=== PATIENT | male | born 1975 | race Caucasian/White ===

== ENCOUNTER 2017-11-12 11:04 | Emergency (ER) | payer OTHER ==
[2017-11-12 11:29] VITALS: BMI 30.6
[2017-11-12 11:32] VITALS: TEMP 98.2
[2017-11-12] MEDS ORDERED: Sodium Chloride 0.9% 1,000 ML IV STA (12:10)
[2017-11-12 12:35] LABS: BASO % 0.1 % (0.0-2.0); EOS % 0.5 % (0.0-4.0); HEMOGLOBIN 14.3 g/dL (12.0-18.0); LYMPH # 1.6 K/uL (1.0-4.3); LYMPH % 15.1 % (20.0-40.0); MEAN CELL VOLUME 80.8 fl (80.0-94.0); MEAN CORPUSCULAR HEMOGLOBIN 26.6 pg (27.0-31.0); MEAN CORPUSCULAR HGB CONC 32.9 g/dL (33.0-37.0); MEAN PLATELET VOLUME 8.8 fl (7.2-11.7); MONO % 9.1 % (0.0-10.0); NEUT % 75.2 % (50.0-75.0); NRBC % 0.1 % (0.0-0.0); RBC 5.37 Mil/uL (4.40-5.90); RED CELL DISTRIBUTION WIDTH 13.9 % (11.5-14.5); WHITE BLOOD COUNT 10.7 K/uL (4.8-10.8)
[2017-11-12 12:44] LABS: ALB/GLOB RATIO 1.1 (1.0-2.1); ALBUMIN 4.5 g/dL (3.5-5.0); ALT/SGPT 45 U/L (21-72); AST/SGOT 45 U/L (17-59); BLOOD UREA NITROGEN 11 mg/dl (9-20); CALCIUM 9.3 mg/dL (8.4-10.2); GFR AFRICAN-AMERICAN > 60; GFR NON-AFRICAN AMERICAN > 60; URIC ACID 7.5 mg/Dl (3.5-8.5)
--- NOTE | 2017-11-12 14:09 | ED PDOC ---
Upper Extremity Pain/Injury Time Seen by Provider: 11/12/17 11:44 Chief Complaint (Nursing): Upper Extremity Problem/Injury Chief Complaint (Provider): LEft wrist pain x 2 days History Per: Patient History/Exam Limitations: no limitations Onset/Duration Of Symptoms: Days Current Symptoms Are (Timing): Still Present Quality: Dull, Burning Severity: Severe Pain Scale Rating Of: 10 Additional Complaint(s): 42 yo male with history of gout in the left wrist presents with redness, swelling and pain to the left wrist for 2 days. PT denies trauma. PT states it feels similar to previous episodes of gout. Past Medical History Reviewed: Historical Data, Nursing Documentation, Vital Signs Vital Signs: Last Vital Signs Temp 98.2 F 11/12/17 11:30 Pulse 93 H 11/12/17 11:30 Resp 20 11/12/17 11:30 BP 136/82 11/12/17 11:30 Pulse Ox 99 11/12/17 11:30 - Medical History PMH: No Chronic Diseases - Surgical History Surgical History: No Surg Hx - Family History Family History: States: No Known Family Hx - Living Arrangements Living Arrangements: With Family - Social History Current smoker - smoking cessation education provided: No - Home Medications Home Medications: Ambulatory Orders Medication Instructions Recorded Colchicine [Mitigare] 0.6 mg PO ONCE #3 cap 11/12/17 - Allergies Allergies/Adverse Reactions: Allergies Allergy/AdvReac Type Severity Reaction Status Date / Time No Known Allergies Allergy Verified 11/12/17 11:39 Review of Systems ROS Statement: Except As Marked, All Systems Reviewed And Found Negative Constitutional: Negative for: Fever, Chills Musculoskeletal: Positive for: Other Physical Exam - Reviewed Nursing Documentation Reviewed: Yes Vital Signs Reviewed: Yes - Physical Exam Appears: Positive for: Well, Non-toxic, No Acute Distress Head Exam: Positive for: ATRAUMATIC, NORMAL INSPECTION, NORMOCEPHALIC Skin: Positive for: Warm. Negative for: Normal Color (Erythema over the left wrist joint ) Eye Exam: Positive for: Normal appearance ENT: Positive for: Normal ENT Inspection Neck: Positive for: Normal, Painless ROM Respiratory: Negative for: Accessory Muscle Use, Respiratory Distress Pulses-Radial (L): 2+ Pulses-Radial (R): 2+ Gastrointestinal/Abdominal: Positive for: Normal Exam, Soft Back: Positive for: Normal Inspection Extremity: Positive for: Normal ROM, Tenderness (Left wrist joint ) Neurologic/Psych: Positive for: Alert, Oriented - Laboratory Results Result Diagrams: 11/12/17 12:28 11/12/17 12:28 - ECG O2 Sat by Pulse Oximetry: 99 Disposition - Clinical Impression Clinical Impression: Gout attack - Patient ED Disposition Is Patient to be Admitted: No Counseled Patient/Family Regarding: Diagnosis, Need For Followup, Rx Given - Disposition Disposition: Routine/Home Disposition Time: 14:02 Condition: STABLE Prescriptions: Colchicine [Mitigare] 0.6 mg PO ONCE #3 cap Instructions: Gout, Lifestyle Changes to Manage Gout Forms: [facility] (Khmer)
[2017-11-12 15:38] VITALS: BP 150/95; PULSE 84; RESP 16; O2SAT 98
== END 2017-11-12 15:38 | disposition home or self-care (01) ==
LOC: H.ER 11:04
DX: M10.9 Gout, unspecified (principal)
CPT/HCPCS: 80053; 84550; 85025; 96360; 99283; J1885; J7030

== ENCOUNTER 2017-11-23 00:41 | Emergency (ER) | payer OTHER ==
[2017-11-23 00:42] VITALS: BMI 30.6
[2017-11-23 01:04] VITALS: BP 126/83; PULSE 82; RESP 16; TEMP 99; O2SAT 99
--- NOTE | 2017-11-23 02:32 | ED PDOC ---
HPI: Skin/Bite Injury Time Seen by Provider: 11/23/17 01:39 Chief Complaint (Nursing): Abnormal Skin Integrity History Per: Patient Additional Complaint(s): Pt. states for the past 6 months he's had a mass on the L thigh. States last weekend he played soccer and since then he's noticed the skin has come off the mass. Denies fever, pain, discharge. Reports minimal bleeding at times. Currently without any bleeding. Past Medical History Reviewed: Historical Data, Nursing Documentation, Vital Signs Vital Signs: Last Vital Signs Temp 99.0 F 11/23/17 01:01 Pulse 82 11/23/17 01:01 Resp 16 11/23/17 01:01 BP 126/83 11/23/17 01:01 Pulse Ox 99 11/23/17 01:01 - Surgical History Surgical History: No Surg Hx - Family History Family History: States: No Known Family Hx - Home Medications Home Medications: Ambulatory Orders Medication Instructions Recorded Colchicine [Mitigare] 0.6 mg PO ONCE #3 cap 11/12/17 Cephalexin [cephalexin] 500 mg PO Q6 #28 cap 11/23/17 - Allergies Allergies/Adverse Reactions: Allergies Allergy/AdvReac Type Severity Reaction Status Date / Time No Known Allergies Allergy Verified 11/12/17 11:39 Review of Systems ROS Statement: Except As Marked, All Systems Reviewed And Found Negative Physical Exam - Physical Exam Appears: Positive for: Well, Non-toxic, No Acute Distress Skin: Positive for: Normal Color, Warm, Rash (large peduculated flesh colored mass on L medial thigh without discharge, swelling, tenderness, fluctuance, or erythema) Pulses-Dorsalis Pedis (L): 2+ Neurologic/Psych: Positive for: Alert, Oriented - ECG O2 Sat by Pulse Oximetry: 99 Disposition - Clinical Impression Clinical Impression: Skin tag - Patient ED Disposition Is Patient to be Admitted: No - Disposition Referrals: [facility] [Outside] Disposition: Routine/Home Disposition Time: 02:00 Condition: STABLE Additional Instructions: Follow up with [facility] or electronics technician for further evaluation. Return to ED immediately if symptoms worsen. Prescriptions: Cephalexin [cephalexin] 500 mg PO Q6 #28 cap Instructions: Skin Tags (Acrochordon) Forms: [employer] (Omani)
== END 2017-11-23 02:13 | disposition home or self-care (01) ==
LOC: H.ER 00:41
DX: L91.8 Other hypertrophic disorders of the skin (principal)